=== PATIENT | female | born 1995 | race Two or more races ===

== ENCOUNTER 2018-10-09 13:00 | Outpatient (CLI) | payer MEDICAID, SELFPAY ==
[2018-10-09 14:48] LABS: TSH (W/Ref FT4) 3.42 uIU/mL (0.358-3.74)
== END 2018-10-09 13:20 ==
PROVIDERS: PCP Nurse Practitioner; Visit Provider Nurse Practitioner
DX: F41.9 Anxiety disorder, unspecified (principal); Z86.39 Personal history of other endocrine, nutritional and metabolic disease
CPT/HCPCS: 36415; 84443

== ENCOUNTER 2020-12-14 03:38 | Outpatient (CLI) | payer MEDICAID, SELFPAY ==
[2020-12-14] MEDS: Albuterol HFA 18 GM 200 PUFF INH IH (14:14)
[2020-12-14] MEDS: Inhaler, Assist Device 1 EACH MC (14:14)
--- NOTE | 2020-12-15 12:53 | W.PFT ---
Date of service: 12/14/20 Time of Service: 12:59 Pulmonary Function Test Result Interpretation Spirometry: No evidence of obstructive airways disease, no bronchodilator response Lung Volumes: No evidence of restriction Diffusion Capacity: Normal Airway Pressure: Normal Impression Normal pulmonary function study Clinical Correlation therefore is recommended.
== END 2020-12-14 03:39 | disposition home or self-care (01) ==
PROVIDERS: PCP Nurse Practitioner; Visit Provider Nurse Practitioner
DX: R06.2 Wheezing (principal); R06.09 Other forms of dyspnea; Z87.891 Personal history of nicotine dependence; Z77.22 Contact with and (suspected) exposure to environmental tobacco smoke (acute) (chronic); Z82.5 Family history of asthma and other chronic lower respiratory diseases
CPT/HCPCS: 94060; 94726; 94729

== ENCOUNTER 2021-05-11 10:21 | Outpatient (CLI) | payer MEDICAID, SELFPAY ==
--- NOTE | 2021-05-11 10:15 | RT.EKG_ITS ---
APPROVED REPORT Exam: Resting ECG Reason for Exam: stimulant medication Patient Location: O HR:94 bpm ECG Measurements Heart Rate 94 AXIS ND 140 P 17 QRSd 80 QRS 63 QT 347 T 21 QTc 434 Conclusion Sinus rhythm...normal P axis, V-rate 60- 99 Normal Electrocardiogram
== END 2021-05-11 10:22 | disposition home or self-care (01) ==
LOC: DI.KIM 10:24
PROVIDERS: PCP Nurse Practitioner; Visit Provider Nurse Practitioner
DX: Z51.81 Encounter for therapeutic drug level monitoring (principal)
CPT/HCPCS: 93010

== ENCOUNTER 2022-07-04 10:58 | Outpatient (CLI) | payer MEDICAID, SELFPAY ==
--- NOTE | 2022-07-04 10:45 | RT.EKG_ITS ---
APPROVED REPORT Exam: Resting ECG Reason for Exam: on [facility] Patient Location: O HR:100 bpm ECG Measurements Heart Rate 100 AXIS ND 147 P 41 QRSd 82 QRS 67 QT 343 T 25 QTc 443 Conclusion Sinus tachycardia...rate> 99 Low voltage, precordial leads...precordial leads <1.0mV
== END 2022-07-04 10:59 | disposition home or self-care (01) ==
LOC: DI.KIM 10:59
PROVIDERS: PCP Nurse Practitioner; Visit Provider Nurse Practitioner
DX: Z51.81 Encounter for therapeutic drug level monitoring (principal); R94.31 Abnormal electrocardiogram [ECG] [EKG]; R00.0 Tachycardia, unspecified
CPT/HCPCS: 93010

== ENCOUNTER 2022-07-11 02:53 | Outpatient (CLI) | payer MEDICAID, SELFPAY ==
[2022-07-11 10:46] LABS: HCT 48.2 % (36.0-46.0); HGB 16.5 g/dL (11.2-15.7); MCH 30.8 pg (27.0-33.0); MCHC 34.2 % (32.0-36.0); MCV 90 fL (80-95); MPV 10.1 fL (8.0-11.0); Platelet Count 378 10^3/uL (130-400); RBC 5.35 10^6/uL (3.93-5.22); RDW 12.2 % (11.7-14.6); RDW-SD 39.8 fL; WBC 9.53 10^3/uL (4.4-10.8)
[2022-07-11 11:30] LABS: ALT 49 U/L (14-59); AST 27 U/L (15-37); Albumin 4.1 g/dL (3.4-5.0); Alkaline Phosphatase 78 U/L (46-116); Anion Gap 6.5 mmol/L (3-11); BUN 9 mg/dL (7-18); Bilirubin, Total 0.6 mg/dL (0.2-1.0); CO2 30.5 mmol/L (21.0-32.0); CREATININE 1.3 mg/dL (0.55-1.02); Chloride 101 mmol/L (98-107); Estimated GFR 57.09 (mL/min/1.73m2); Ferritin 131 ng/mL (8-252); Glucose 92 mg/dL (74-106); Potassium 3.8 mmol/L (3.5-5.1); Sodium 138 mmol/L (136-145); TSH (W/Ref FT4) 5.51 uIU/mL (0.36-3.74); Total Protein 7.3 g/dL (6.4-8.2); Vitamin B12 237 pg/mL (193-986)
[2022-07-11 11:57] LABS: FREE T4 1.01 ng/dL (0.76-1.46)
== END 2022-07-11 02:54 | disposition home or self-care (01) ==
LOC: LBO 02:53
PROVIDERS: PCP Nurse Practitioner; Visit Provider Nurse Practitioner
DX: F90.9 Attention-deficit hyperactivity disorder, unspecified type; Z79.899 Other long term (current) drug therapy; E03.9 Hypothyroidism, unspecified; R53.83 Other fatigue; R71.8 Other abnormality of red blood cells
CPT/HCPCS: 36415; 80053; 85027; 82607; 82728; 84439; 84443

== ENCOUNTER 2022-10-03 02:37 | Outpatient (CLI) | payer MEDICAID, SELFPAY ==
[2022-10-03 11:09] LABS: Abs Immature Grans 0.03 10^3/uL (0.0-0.06); Absolute Basophil Count 0.04 10^3/uL (0.0-0.2); Absolute Eosinophil Count 0.07 10^3/uL (0.0-0.7); Absolute Lymphocyte Count 2.43 10^3/uL (1.2-3.4); Absolute Monocyte Count 0.69 10^3/uL (0.1-0.8); Absolute Neutrophil Count 4.93 10^3/uL (1.2-6.7); Basophils % 0.5; Eosinophils % 0.9; HCT 45.9 % (36.0-46.0); HGB 15.8 g/dL (11.2-15.7); Immature Grans % 0.4; Lymphocytes % 29.7; MCH 30.8 pg (27.0-33.0); MCHC 34.4 % (32.0-36.0); MCV 90 fL (80-95); MPV 10.3 fL (8.0-11.0); Monocytes % 8.4; Neutrophils % 60.1; Platelet Count 335 10^3/uL (130-400); RBC 5.13 10^6/uL (3.93-5.22); RDW 12.2 % (11.7-14.6); RDW-SD 40.1 fL; WBC 8.19 10^3/uL (4.4-10.8)
[2022-10-03 11:50] LABS: Anion Gap 5.7 mmol/L (3-11); BUN 8 mg/dL (7-18); CO2 31.3 mmol/L (21.0-32.0); CREATININE 1.3 mg/dL (0.55-1.02); Calcium 9.1 mg/dL (8.5-10.1); Chloride 104 mmol/L (98-107); Estimated GFR 57.09 (mL/min/1.73m2); Glucose 95 mg/dL (74-106); Potassium 3.5 mmol/L (3.5-5.1); Sodium 141 mmol/L (136-145); TSH (W/Ref FT4) 5.77 uIU/mL (0.36-3.74)
[2022-10-03 12:09] LABS: FREE T4 0.86 ng/dL (0.76-1.46)
== END 2022-10-03 02:38 | disposition home or self-care (01) ==
LOC: LBO 02:38
PROVIDERS: PCP Nurse Practitioner; Referring Provider Nurse Practitioner; Visit Provider Nurse Practitioner
DX: I10 Essential (primary) hypertension (principal); R79.89 Other specified abnormal findings of blood chemistry; E03.9 Hypothyroidism, unspecified; F43.23 Adjustment disorder with mixed anxiety and depressed mood; R53.83 Other fatigue
CPT/HCPCS: 36415; 80048; 84439; 84443; 85025

== ENCOUNTER 2022-10-09 13:09 | Outpatient (REF) | payer MEDICAID, SELFPAY ==
--- NOTE | 2022-10-09 11:20 | PAPFT_PTH ---
PATIENT: Ayo Gamez LOC: [facility] U#:[id number] AGE/SX: 27/F ROOM: RE10/09/[address]: Asmita Figueroa NP : 1995 BED: DIS: 10/09/2022 SPEC #: [id number] RECD: 10/09/22 17:47 STATUS: SANDRA REKary #: [id number] NUBIA: 10/09/22 11:[address]: Asmita Figueroa NP DEPT: [facility] Cyt[facility] RECD BY: Treva Calderón ENTERED: 10/09/22 17:47 SP TYPE: PAPFT OTHR DR: Chery Camacho APRN Tissues: 1 - CX/ENDOCX FOR PAP SMEARS Procedures: PAP THIN PREP/UVM Screening Comments: [id number]
== END 2022-10-09 13:10 | disposition home or self-care (01) ==
LOC: LBN 13:09
PROVIDERS: PCP Nurse Practitioner; Visit Provider Nurse Practitioner Women's Health
DX: Z12.4 Encounter for screening for malignant neoplasm of cervix (principal)
CPT/HCPCS: 88142

== ENCOUNTER 2022-12-05 02:30 | Outpatient (CLI) | payer MEDICAID, SELFPAY ==
[2022-12-05 11:27] LABS: Bilirubin Negative (Negative); Blood Negative (Negative); Clarity Clear (Clear); Glucose Negative (Negative); Ketones Negative (Negative); Leukocyte Esterase Negative (Negative); Nitrite Negative (Negative); Specific Gravity >= 1.030 (1.005-1.025); Urobilinogen 0.2 mg/dL (Up to 0.2)
[2022-12-05 11:50] LABS: Anion Gap 9.1 mmol/L (3-11); BUN 14 mg/dL (7-18); CO2 28.9 mmol/L (21.0-32.0); CREATININE 1.5 mg/dL (0.55-1.02); Calcium 9.4 mg/dL (8.5-10.1); Chloride 104 mmol/L (98-107); Estimated GFR 48.08 (mL/min/1.73m2); Glucose 93 mg/dL (74-106); Potassium 3.6 mmol/L (3.5-5.1); Sodium 142 mmol/L (136-145); TSH (W/Ref FT4) 4.58 uIU/mL (0.36-3.74)
[2022-12-06 14:08] LABS: ANA Interpretation Negative (Negative)
== END 2022-12-05 02:31 | disposition home or self-care (01) ==
LOC: LBO 02:30
PROVIDERS: PCP Nurse Practitioner; Visit Provider Nurse Practitioner
DX: R53.83 Other fatigue (principal); E03.9 Hypothyroidism, unspecified; N28.9 Disorder of kidney and ureter, unspecified; R82.998 Other abnormal findings in urine
CPT/HCPCS: 36415; 80048; 81003; 84439; 84443; 86038

== ENCOUNTER 2023-01-10 02:12 | Outpatient (CLI) | payer MEDICAID, SELFPAY ==
--- NOTE | 2023-01-10 07:45 | DI.US_ITS ---
Exam(s) US RENAL EXAM: US RENAL CLINICAL HISTORY: Cr 1.5, slightly decreased GFR,ELEVATED CREATININE,R79.89 TECHNIQUE: Ultrasound of both kidneys performed using standard protocol. COMPARISON: No exams were available for comparison FINDINGS: RIGHT KIDNEY: Measures 10 cm in length. No cysts evident. Normal cortical thickness and corticomedullary differenti ation .No solid masses No intrarenal calculi nor hydronephrosis. LEFT KIDNEY: Measures 10 cm in length. No cysts evident. Normal cortical thickness and corticomedullary different iaion. No solids masses. No intrarenal calculi nor hydonephrosis. URINARY BLADDER: Prevoid volume is 140 cc Postvoid volume is. Period. Patient did not feel the urge to void No evidence of bladder mass nor diverticuli. Ureterovesical jets: Both were not identified. IMPRESSION: 1. No significant ultrasound findings in the kidneys. 2. No obvious masses nor calculi in the urinary bladder. DATA REPOSITORY:
== END 2023-01-10 02:32 ==
LOC: DI 02:12
PROVIDERS: PCP Nurse Practitioner; Visit Provider Nurse Practitioner
DX: R79.89 Other specified abnormal findings of blood chemistry (principal)
CPT/HCPCS: 76770

== ENCOUNTER 2023-11-06 04:35 | Outpatient (CLI) | payer MEDICAID, SELFPAY ==
[2023-11-06 14:45] LABS: Calculated LDL 129 mg/dL (<100); Cholesterol 214 mg/dL (<200); HDL Cholesterol 51 mg/dL (40-60); TSH (W/Ref FT4) 5.51 uIU/mL (0.36-3.74); Triglyceride 172 mg/dL (<150)
[2023-11-06 15:04] LABS: FREE T4 0.87 ng/dL (0.76-1.46)
== END 2023-11-06 04:36 | disposition home or self-care (01) ==
LOC: LBO 04:35
PROVIDERS: PCP Nurse Practitioner; Visit Provider Nurse Practitioner
DX: E03.9 Hypothyroidism, unspecified (principal); Z13.220 Encounter for screening for lipoid disorders
CPT/HCPCS: 36415; 80061; 84439; 84443

== ENCOUNTER 2024-01-15 01:25 | Outpatient (CLI) | payer MEDICAID, SELFPAY ==
[2024-01-15 13:09] LABS: Anion Gap 1.7 mmol/L (3-11); BUN 11 mg/dL (7-18); CO2 32.3 mmol/L (21.0-32.0); CREATININE 1.3 mg/dL (0.55-1.02); Calcium 9.7 mg/dL (8.5-10.1); Chloride 104 mmol/L (98-107); Estimated GFR 56.73 (mL/min/1.73m2); Glucose 100 mg/dL (74-106); Potassium 3.8 mmol/L (3.5-5.1); Sodium 138 mmol/L (136-145); TSH (W/Ref FT4) 2.79 uIU/mL (0.36-3.74)
== END 2024-01-15 01:26 | disposition home or self-care (01) ==
LOC: LBO 01:25
PROVIDERS: Absent Provider Nurse Practitioner; PCP Nurse Practitioner; Referring Provider Nurse Practitioner; Visit Provider Nurse Practitioner
DX: E03.9 Hypothyroidism, unspecified (principal); R79.9 Abnormal finding of blood chemistry, unspecified
CPT/HCPCS: 36415; 80048; 84443

== ENCOUNTER 2024-02-12 14:30 | Emergency (ER) | payer MEDICAID, SELFPAY ==
[2024-02-12] VITALS (9 sets, daily range): BP systolic 99–117; BP diastolic 81–82; PULSE 96–116; RESP 16–22; TEMP 36.5–37.2; O2SAT 95–98
--- NOTE | 2024-02-12 14:59 | W.ED.GENAD ---
Discharge Plan Disposition Patient Disposition: Home Discharge Details Clinical Impression: Nausea & vomiting Primary Care Provider: Chery Camacho ED Provider: Kristopher Camacho Home Meds and New Rx's Prescriptions: Continued albuterol sulfate 90 mcg/actuation HFA aerosol inhaler 2 puff inhalation Q4H PRN (Reason: shortness of breath or wheezing) Qty: 18 6RF Mirena 21 mcg/24 hours (8 yrs) 52 mg intrauterine device 1 device intrauterine ONCE Rx Instructions: as a single dose bupropion HCl 150 mg tablet extended release 24 hr 150 mg PO QAM Qty: 90 3RF Rx Instructions: 300 mg daily with 150 mg daily to total 450 mg daily PO QAM bupropion HCl 300 mg tablet extended release 24 hr 300 mg PO QAM Qty: 90 3RF Rx Instructions: Take with 150mg tab for a total of 450mg daily levothyroxine 75 mcg tablet 75 mcg PO DAILY Qty: 90 3RF methylphenidate HCl 54 mg tablet extended release 24hr 54 mg PO DAILY MDD 54mg Qty: 28 0RF methylphenidate HCl [Concerta] 54 mg tablet extended release 24hr 54 mg PO DAILY MDD 54mg Qty: 28 0RF methylphenidate HCl 54 mg tablet extended release 24hr 54 mg PO DAILY MDD 54 Qty: 28 0RF naproxen 250 MG tablet 250 mg PO PRN Rx Instructions: 09/12/17 for SHANKAR RH lamotrigine 200 mg tablet 400 mg PO DAILY Qty: 180 3RF Discharge Instructions Instructions: Nausea and vomiting in adults Additional Instructions: You are seen in the emergency department for your nausea and vomiting. Your blood work shows that your kidneys are working similarly to prior lab draws. Please return to the emergency department as we discussed if you develop fevers cannot eat or drink as result of nausea vomiting or if you have any other concerns. Discharge Data Discharge Date/Time-TO BE ENTERED AT DEPARTURE: 02/12/24 17:38 HPI General Date/Time Provider Initiated Documentation: 02/12/24 14:55. HPI Narrative: MDM This is an overall very well-appearing mildly tachycardic but normothermic 28-year-old patient with dry mucous membranes decreased p.o. concerning for the possibility of acute dehydration for which patient will receive ondansetron and dextrose containing IV fluids. No history of diabetes to suggest DKA. No pain out of proportion to suggest necrotizing soft tissue infection. Soft nontender abdomen so not concern for intra-abdominal infection. Specifically no right upper quadrant tenderness to suggest acute cholecystitis. No right lower quadrant tenderness to suggest appendicitis. No dysuria nor frequency so doubt UTI. No left lower quadrant tenderness so doubt diarrhea. No epigastric tenderness to suggest appendicitis. Based on the patient's age and lack of chest pain I am not suspicious for ACS I did not obtain an ECG. No rash to abdomen to suggest zoster. No cough nor fevers so my suspicion is low for pneumonia. Given no chest pain and no shortness of breath my suspicion was low for PE so I did not send a D-dimer. No wheezes to suggest reactive airway exacerbation. No abnormal urethral discharge so doubt sexually transmitted infection. Patient having diarrhea and given nontender abdomen and no past surgical history my suspicion for small bowel obstruction is less I did not feel that the patient required a CT scan. Patient's brother reportedly had similar symptoms yesterday so we will assess electrolytes and treat with supportive measures and reassess. 5:24 PM CBC shows leukocytosis and erythrocytosis. No thrombocytopenia. Negative hCG. Comprehensive metabolic panel showing CKD no [place]. Mild hyperglycemia and mild anion gap and normal bicarbonate??not consistent with DKA. Mildly elevated T. bili normal LFTs. No acute electrolyte abnormalities. Negative COVID influenza RSV. Normal reassuring TSH. Patient feels markedly improved. Patient's heart rate is still mildly elevated at 105 bpm. She is tolerating p.o. she had had a normal heart rate. I offered to continue to observe patient in the ED. patient felt improved and requested discharge. Will send her with a short course of ondansetron and give her strict return indications including any fevers chills nausea vomiting or abdominal pain. Chronic conditions affecting the care of the patient: Hypothyroidism depression elevated BMI History obtained from an outside historian: Patient's brother External record review: [facility] Medications: Ondansetron IV fluids Social determinants of health affecting disposition: N/A Management discussed with: N/A Treatment/interventions considered: Continued observation but deferred based on patient preference Response to therapies provided: Improved symptoms and resolved emesis in the ED HPI This is a 28-year-old patient with a history of polycystic ovarian syndrome and depression and hypothyroidism arrived to the emergency department via private vehicle in the setting of decreased p.o. today and nausea vomiting diarrhea since this morning. Patient reports 6 episodes of diarrhea. Patient denies hematochezia bright red blood per rectum. Patient has vomited 3 times today. No hematemesis. No chest pain. No shortness of breath no dysuria nor frequency. No routine tobacco, ethanol, nor illicits. Patient has not had any surgeries in the past. Patient denies abdominal pain. No dysuria nor frequency. No recent falls. Patient sibling had similar symptoms yesterday. Exam General: Well-appearing in no acute distress speaking in complete sentences. Head: Normocephalic, atraumatic. Eye: Extraocular eye movements intact. No conjunctival injection. No scleral icterus. Ear, nose, mouth, throat: Dry mucous membranes. Normal voice, handling secretions normally. Neck: Trachea midline. Cardiovascular: Well-perfused distal extremities. Rapid, regular rate and rhythm Respiratory: Nonlabored respiration. Clear lungs bilaterally. Gastrointestinal: Nondistended abdomen. Soft nontender. No rebound. No guarding. Musculoskeletal: No edema. Moving all 4 extremities spontaneously. Skin: Normal for age and race, grossly normal temperature and turgor. No acute rash. Neurologic: Alert and appropriate, no apparent acute deficits. Psychiatric: Mood and manner are appropriate. Grooming and personal hygiene are appropriate. Related Data Home Medications Medication Instructions Recorded Confirmed naproxen 250 mg tablet 250 mg PO PRN 09/12/17 10/09/22 albuterol sulfate 90 mcg/actuation 2 puff inhalation Q4H PRN 01/17/22 10/09/22 aerosol inhaler shortness of breath or wheezing #18 grams levonorgestrel 21 mcg/24 hr (up to 1 device intrauterine ONCE 10/09/22 10/09/22 8 years) 52 mg intrauterine device (Mirena) lamotrigine 200 mg tablet 400 mg (2 x 200 mg) PO DAILY #180 03/22/23 tab-caps bupropion HCl 150 mg 24 hr tablet, 150 mg PO QAM #90 tabs 08/21/23 08/21/23 extended release bupropion HCl 300 mg 24 hr tablet, 300 mg PO QAM #90 tabs 08/21/23 08/21/23 extended release levothyroxine 75 mcg tablet 75 mcg PO DAILY #90 tabs 11/14/23 11/14/23 methylphenidate HCl 54 mg 54 mg PO DAILY #28 tabs 02/05/24 02/05/24 tablet,extended release 24 hr methylphenidate HCl 54 mg 54 mg PO DAILY #28 tabs 02/05/24 02/05/24 tablet,extended release 24 hr methylphenidate HCl 54 mg 54 mg PO DAILY #28 tabs 02/05/24 02/05/24 tablet,extended release 24 hr (Concerta) Previous Rx's Medication Instructions Recorded albuterol sulfate 90 mcg/actuation 2 puff inhalation Q4H PRN 01/17/22 aerosol inhaler shortness of breath or wheezing #18 grams lamotrigine 200 mg tablet 400 mg (2 x 200 mg) PO DAILY #180 03/22/23 tab-caps bupropion HCl 150 mg 24 hr tablet, 150 mg PO QAM #90 tabs 08/21/23 extended release bupropion HCl 300 mg 24 hr tablet, 300 mg PO QAM #90 tabs 08/21/23 extended release levothyroxine 75 mcg tablet 75 mcg PO DAILY #90 tabs 11/14/23 methylphenidate HCl 54 mg 54 mg PO DAILY #28 tabs 02/05/24 tablet,extended release 24 hr methylphenidate HCl 54 mg 54 mg PO DAILY #28 tabs 02/05/24 tablet,extended release 24 hr methylphenidate HCl 54 mg 54 mg PO DAILY #28 tabs 02/05/24 tablet,extended release 24 hr (Concerta) Allergies Allergy/AdvReac Type Severity Reaction Status Date / Time prazosin AdvReac Unknown hypotension Verified 02/05/24 11:22 /fainting General Stated Complaint: Abd Prob GABRIELE: 3 Course Vital Signs Vital signs: Vital Signs Temperature 36.6 C 02/12/24 14:49 Pulse 116 H 02/12/24 14:49 Respiratory Rate 18 02/12/24 14:49 Blood Pressure 99/81 L 02/12/24 14:49 Pulse Oximetry 95 02/12/24 14:49 Temperature 36.6 C 02/12/24 14:49 Pulse 116 H 02/12/24 14:49 Respiratory Rate 18 02/12/24 14:49 Blood Pressure 99/81 L 02/12/24 14:49 Blood Pressure Position Sitting 02/12/24 14:49 Pulse Oximetry 95 02/12/24 14:49 Oxygen Delivery Method Room Air 02/12/24 14:49 Oxygen Flow Rate 0 02/12/24 14:49 Pain Level 5 02/12/24 14:49 Medical Decision Making Quality:SDOH Health Related Social Needs: No Data to Display PFSH All Active Problems (Updated 02/12/24 @ 17:27 by Kristopher Camacho MD) Nausea & vomiting (Acute) IUD surveillance (Acute) Encounter for therapeutic drug level monitoring (Acute) SOB (shortness of breath) (Acute) Wheeze (Acute) Overweight (Acute) Routine eye exam (Acute) Routine cervical smear (Acute) Depression (Chronic) Adjustment disorder with mixed anxiety and depressed mood (Chronic 01/02/18) ADHD (attention deficit hyperactivity disorder) (Chronic) Suicidal ideation (Acute 08/10/16) inpatient care 08/10/16-08/15/16 PCOS (polycystic ovarian syndrome) (Acute 08/22/17) Oligomenorrhea (Acute 08/22/17) Moderate episode of recurrent major depressive disorder (Acute 08/22/17) Hypothyroidism (Acute 08/22/17) Enlarged thyroid (Acute 08/22/17) Chronic post-traumatic stress disorder (PTSD) (Acute 08/22/17) Family History Mother Anxiety Mental disorder Depression/Anxiety ADHD Sister ADHD Maternal Grandfather Mental disorder Bipolar disorder Maternal Grandmother Anxiety Mental disorder Depression Social History Smoking/Tobacco Use Status: Never Second Hand Exposure: Yes Smoking risk assessment performed?: Yes Alcohol Intake: current Alcohol Intake frequency: a few times a month Substance use type: does not use Adopted: No Foster care: No Housing: apartment Number of Children: 0 Other: non-binary,they/them What type of physical activity do you participate in: walking Duration: 15-30 minutes/day Frequency: daily Seatbelt use: always Working smoke detector in home: Yes Fire extinguisher in home: Yes Carbon monox detector in home: Yes Female Reproductive History Menstrual control method: progestin IUCD
[2024-02-12] MEDS: DEXTROSE 5%-0.9% SALINE 1,000 ML 1000 ML IV (15:48)
[2024-02-12] MEDS: Ondansetron 4 MG/2 ML VIAL IVP (15:49)
[2024-02-12 16:05] LABS: COVID-19 PCR Negative (Negative); Influenza A PCR Negative (Negative); Influenza B PCR Negative (Negative); RSV PCR Negative (Negative)
[2024-02-12 16:07] LABS: Source Nasopharynx
[2024-02-12 16:12] LABS: ALT 38 U/L (14-59); AST 18 U/L (15-37); Albumin 4.8 g/dL (3.4-5.0); Alkaline Phosphatase 90 U/L (46-116); Anion Gap 11.6 mmol/L (3-11); BUN 11 mg/dL (7-18); Bilirubin, Total 1.07 mg/dL (0.2-1.0); CO2 28.4 mmol/L (21.0-32.0); CREATININE 1.5 mg/dL (0.55-1.02); Calcium 9.6 mg/dL (8.5-10.1); Chloride 102 mmol/L (98-107); Estimated GFR 47.78 (mL/min/1.73m2); Glucose 167 mg/dL (74-106); Potassium 4.2 mmol/L (3.5-5.1); Sodium 142 mmol/L (136-145); Total Protein 8.4 g/dL (6.4-8.2)
[2024-02-12 16:19] LABS: HCG Qual (Serum) Negative
[2024-02-12 16:19] LABS: Abs Immature Grans 0.08 10^3/uL (0.0-0.06); Absolute Basophil Count 0.05 10^3/uL (0.0-0.2); Absolute Eosinophil Count 0.05 10^3/uL (0.0-0.7); Absolute Lymphocyte Count 0.35 10^3/uL (1.2-3.4); Absolute Monocyte Count 0.73 10^3/uL (0.1-0.8); Absolute Neutrophil Count 15.36 10^3/uL (1.2-6.7); Basophils % 0.3 %; Eosinophils % 0.3 %; HCT 51.8 % (36.0-46.0); HGB 17.7 g/dL (11.2-15.7); Immature Grans % 0.5 %; Lymphocytes % 2.1 %; MCH 31.3 pg (27.0-33.0); MCHC 34.2 % (32.0-36.0); MCV 92 fL (80-95); MPV 9.6 fL (8.0-11.0); Monocytes % 4.4 %; Neutrophils % 92.4 %; Platelet Count 287 10^3/uL (130-400); RBC 5.65 10^6/uL (3.93-5.22); RDW 12.2 % (11.7-14.6); RDW-SD 40.8 fL; WBC 16.62 10^3/uL (4.4-10.8)
[2024-02-12 16:23] LABS: TSH (W/Ref FT4) 3.39 uIU/mL (0.36-3.74)
[2024-02-12] MEDS: Ondansetron O.D.T. 4 MG TABEF, 3 TABS/BTL PO (17:36)
== END 2024-02-12 17:38 | disposition home or self-care (01) ==
PROVIDERS: Emergency Provider Emergency Medicine; PCP Nurse Practitioner
DX: R10.9 Unspecified abdominal pain (principal); R11.10 Vomiting, unspecified; R19.7 Diarrhea, unspecified; N18.9 Chronic kidney disease, unspecified; R73.9 Hyperglycemia, unspecified; E03.9 Hypothyroidism, unspecified; F32.A Depression, unspecified; Z79.899 Other long term (current) drug therapy; E66.3 Overweight
CPT/HCPCS: 80053; 87637; 96374; 96375; 99284; 84443; 84703; 85025; J2405; J7042

== ENCOUNTER → 2024-02-19 02:04 | Outpatient (CLI) | payer MEDICAID, SELFPAY ==
--- NOTE | 2024-02-19 11:12 | DI.RAD_ITS ---
Exam(s) XR WRIST RT COMPLETE EXAM: XR WRIST RT COMPLETE CLINICAL HISTORY: new bony prominence ANT WRIST,M89.8X9. TECHNIQUE: 2D digital imaging was performed of the right wrist. Three views were obtained. PA, lat eral and oblique views were obtained. COMPARISON: No exams were available for comparison FINDINGS: BONES: No acute fracture is present. No bony destructive lesion is seen. JOINTS: The carpal bones are normally aligned. SOFT TISSUE: Normal. IMPRESSION: Unremarkable radiographs of the right wrist. DATA REPOSITORY: RADIATION DOSE DELIVERED:
== END ==
PROVIDERS: PCP Nurse Practitioner; Visit Provider Nurse Practitioner
DX: M89.8X4 Other specified disorders of bone, hand (principal)
CPT/HCPCS: 73110

== ENCOUNTER 2024-06-19 01:47 | Outpatient (CLI) | payer MEDICAID, SELFPAY ==
--- NOTE | 2024-06-19 07:30 | DI.MRI_ITS ---
Exam(s) MR UPPER JOINT RT WO EXAM: MR UPPER JOINT RT WO CLINICAL HISTORY: R WRIST PAIN,GANGLION,M67.431. TECHNIQUE: Multiplanar multisequence MRI was performed. COMPARISON: None. FINDINGS: BONES: There is no fracture nor bone contusion. No evidence of avascular necrosis. No significant ul steven variance. No evidence of ulnar impaction syndrome. JOINTS: The radiocarpal joint is unremarkable. The carpal joints are unremarkable. Scapholunate dis tance is normal.On the dorsal aspect of the wrist there is a lobulated fluid collection dorsal to the scaphoid and lunate bones and radioscaphoid articulation, this measuring 1.3 cm wide x 0.4 cm AP x 0 .3 cm thickness, consistent with a para-articular ganglion cyst. It appears to be coming off of the dorsal aspect of the radiocarpal/radioscaphoid articulation and extends medially over the dorsal aspe ct of the scaphoid and lunate. This is located deep to the extensor digitorum and extensor carpi rad ialis brevis tendons and intimately related to the dorsal radiocarpal ligament. TENDONS: Flexors: Unremarkable. No tears nor tenosynovitis. Extensors: Unremarkable. No tears or tenosynovitis. Carpal tunnel:Unremarkable. No tears nor tenosynovitis. No evidence of de Quervain tenosynovitis. MUSCLES: Unremarkable. No abnormal intramuscular signal. MEDIAN NERVE: Unremarkable on this noncontrast examination. SOFT TISSUES: Unremarkable. LIGAMENTS: Scapholunate ligament intact. Lunotriquetral ligament also appears intact. TRIANGULAR FIBROCARTILAGE: No tears evident. OTHER: IMPRESSION: There is a well-defined lobulated 13 x 4 x 3 mm fluid collection on the dorsal-aspect of the wrist as described above which has appearance of a para-articular ganglia cyst. It is situated dorsal to the scaphoid and lunate bones and appears to be coming off of the lateral aspect of the radiocarpal join t. There is no prominent joint effusion. There is no intraosseous signal abnormality in the distal radius nor within the scaphoid and lunate bones.. DATA REPOSITORY:
== END 2024-06-19 02:07 ==
LOC: DI 01:47
PROVIDERS: PCP Nurse Practitioner; Visit Provider Student in an Organized Health Care Education/Training Program
DX: M67.431 Ganglion, right wrist (principal)
CPT/HCPCS: 73221

== ENCOUNTER 2024-10-31 00:25 | Outpatient (CLI) | payer MEDICAID, SELFPAY ==
[2024-10-31 11:45] LABS: Abs Immature Grans 0.05 10^3/uL (0.0-0.06); Absolute Basophil Count 0.07 10^3/uL (0.0-0.2); Absolute Lymphocyte Count 2.62 10^3/uL (1.2-3.4); Absolute Monocyte Count 0.69 10^3/uL (0.1-0.8); Absolute Neutrophil Count 6.05 10^3/uL (1.2-6.7); Basophils % 0.7 %; HCT 48.3 % (36.0-46.0); HGB 16.3 g/dL (11.2-15.7); Immature Grans % 0.5 %; Lymphocytes % 27.3 %; MCH 30.3 pg (27.0-33.0); MCHC 33.7 % (32.0-36.0); MCV 90 fL (80-95); MPV 9.9 fL (8.0-11.0); Monocytes % 7.2 %; Neutrophils % 63.3 %; Platelet Count 346 10^3/uL (130-400); RBC 5.38 10^6/uL (3.93-5.22); RDW 11.8 % (11.7-14.6); RDW-SD 38.4 fL; WBC 9.58 10^3/uL (4.4-10.8)
[2024-10-31 11:51] LABS: ALT 42 U/L (14-59); AST 19 U/L (15-37); Alkaline Phosphatase 77 U/L (46-116); BUN 8 mg/dL (7-18); Bilirubin, Total 0.6 mg/dL (0.2-1.0); CREATININE 1.3 mg/dL (0.55-1.02); Calcium 9.3 mg/dL (8.5-10.1); Calculated LDL 163 mg/dL (<100); Chloride 105 mmol/L (98-107); Cholesterol 245 mg/dL (<200); Estimated GFR 56.38 (mL/min/1.73m2); Glucose 84 mg/dL (74-106); HDL Cholesterol 52 mg/dL (>or=50); Potassium 4.3 mmol/L (3.5-5.1); Sodium 142 mmol/L (136-145); TSH (W/Ref FT4) 4.38 uIU/mL (0.36-3.74); Total Protein 7.2 g/dL (6.4-8.2); Triglyceride 151 mg/dL (<150)
[2024-10-31 22:09] LABS: T4, Free 1.1 ng/dL (0.8-2.2)
== END 2024-10-31 00:26 | disposition home or self-care (01) ==
PROVIDERS: Absent Provider Nurse Practitioner; PCP Nurse Practitioner; Referring Provider Nurse Practitioner; Visit Provider Nurse Practitioner
DX: E03.9 Hypothyroidism, unspecified (principal); F90.9 Attention-deficit hyperactivity disorder, unspecified type; F32.9 Major depressive disorder, single episode, unspecified; E66.9 Obesity, unspecified; Z13.220 Encounter for screening for lipoid disorders
CPT/HCPCS: 36415; 80053; 80061; 84439; 84443; 85025

== ENCOUNTER 2025-07-20 04:16 | Outpatient (CLI) | payer MEDICAID, SELFPAY ==
[2025-07-20 11:33] LABS: Abs Immature Grans 0.03 10^3/uL (0.0-0.06); HCT 45.6 % (36.0-46.0); HGB 15.9 g/dL (11.2-15.7); Immature Grans % 0.4 %; MCH 30.2 pg (27.0-33.0); MCHC 34.9 % (32.0-36.0); MCV 87 fL (80-95); MPV 10.1 fL (8.0-11.0); Platelet Count 319 10^3/uL (130-400); RBC 5.26 10^6/uL (3.93-5.22); RDW 12.0 % (11.7-14.6); RDW-SD 38.3 fL; WBC 6.99 10^3/uL (4.4-10.8)
[2025-07-20 12:06] LABS: ALT 32 U/L (10-49); AST 26 U/L (<34); Albumin 4.3 g/dL (3.2-5.0); Alkaline Phosphatase 73 U/L (46-116); Anion Gap 7.8 mmol/L (3-11); BUN 10 mg/dL (9-23); Bilirubin, Total 0.40 mg/dL (0.2-1.2); CO2 30.2 mmol/L (20.0-31.0); Calcium 8.8 mg/dL (8.3-10.6); Chloride 105 mmol/L (98-107); Glucose 111 mg/dL (74-106); Potassium 3.7 mmol/L (3.5-5.1); Sodium 143 mmol/L (136-145); Total Protein 6.9 g/dL (5.7-8.2)
[2025-07-20 12:10] LABS: Vitamin D 25 Total 27 ng/mL (30-100)
[2025-07-20 12:11] LABS: TSH 5.24 uIU/mL (0.55-4.78); Vitamin B12 330 pg/mL (211-911)
[2025-07-20 13:37] LABS: Hemoglobin A1C 4.9 % (<5.7)
[2025-07-23 16:52] LABS: Cannabinoids THC Negative (Negative)
== END 2025-07-20 04:17 | disposition home or self-care (01) ==
LOC: LBO 04:16
PROVIDERS: PCP Nurse Practitioner; Visit Provider Registered Nurse
DX: F41.1 Generalized anxiety disorder (principal); F43.12 Post-traumatic stress disorder, chronic; F90.2 Attention-deficit hyperactivity disorder, combined type; F33.1 Major depressive disorder, recurrent, moderate; E66.9 Obesity, unspecified; Z79.3 Long term (current) use of hormonal contraceptives; Z51.81 Encounter for therapeutic drug level monitoring
CPT/HCPCS: 36415; 80053; 80175; 80307; 80360; 82306; 82607; 83036; 84439; 84443; 85025